=== PATIENT | male | born 1985 | race American Indian/Alaskan Native ===

== ENCOUNTER 2017-06-03 21:40 | Emergency (ER) | payer OTHER ==
--- NOTE | 2017-06-03 23:09 | XRay Report ---
FINAL REPORT EXAM: XR SHOULDER 2+V RT HISTORY: pain TECHNIQUE: 3 views of right shoulder. PRIORS: None. FINDINGS: No apparent fracture or dislocation. Joint spaces maintained. Soft tissues grossly unremarkable. IMPRESSION: 1. No acute osseous abnormality.
--- NOTE | 2017-06-04 02:41 | Emergency Department Report ---
Upper Extremity - HPI Chief Complaint: Shoulder Injury Stated Complaint: SHOULDER INJURY Time Seen by Provider: 06/04/17 02:34 Upper Extremity: Right Shoulder Occurred When: Today Mechanism: Other Severity: severe Symptoms: Yes Pain with Movement, Yes Limited Range of Movement, Yes Numbness, No Deformity, No Weakness, No Swelling, No Bruising/Ecchymosis, No Laceration or Abrasion Other History: 32-year-old -[place]i male comes in today for reporting unable to elevate his right shoulder. Patient reports that this morning he had difficulty elevating the shoulder so he came in. Patient reports he has a pre- existing injury to his right shoulder since last June 2016. Patient reports that his right shoulder keeps coming out the socket. He reports this morning it came out the socket and is hands became numb and cold he was able to place it back into the socket. Patient reports that he is awaiting authorization for surgery to have his shoulder repaired. Patient reports that he has had tramadol in the past which he felt did not help at all. He was then evaluated by Jose Daniel waiting for his workman compensation to kick in so he can get surgery. She reports his pain is a 5 out of 10 at rest and with movement it is a 9 out of 10. Patient denies any past medical history he admits to having a penicillin allergy. He currently takes no medications. ED Review of Systems ROS: Stated complaint: SHOULDER INJURY Other details as noted in HPI Constitutional: denies: chills, fever Eyes: denies: eye pain, eye discharge, vision change ENT: denies: ear pain, throat pain Respiratory: denies: cough, shortness of breath, wheezing Cardiovascular: denies: chest pain, palpitations Endocrine: no symptoms reported Gastrointestinal: denies: abdominal pain, nausea, diarrhea Genitourinary: denies: urgency, dysuria Musculoskeletal: arthralgia (right shoulder) Skin: denies: rash, lesions Neurological: denies: headache, weakness, paresthesias Psychiatric: denies: anxiety, depression Hematological/Lymphatic: denies: easy bleeding, easy bruising ED Past Medical Hx - Past Medical History Previous Medical History?: No - Surgical History Past Surgical History?: No - Social History Smoking Status: Current Every Day Smoker Substance Use Type: None - Medications Home Medications: Home Medications Medication Instructions Recorded Confirmed Last Taken Type Ibuprofen [Motrin 800 MG tab] 800 mg PO Q8H 10 Days #30 tablet 06/04/17 Unknown Rx Upper Extremity Exam - Exam General: Vital signs noted. No distress. Alert and acting appropriately. Shoulder Exam: Yes Shoulder Tenderness (rt anterior and posterior before meals joint), Yes AC Joint Tenderness, No Clavicle Tenderness, No Normal Range of Motion in Shoulder (2 painful to move able to elevate to chest.), No Shoulder Deformity Arm Exam: No Arm/Humerus Tenderness, No Arm Deformity Elbow: No Elbow Tenderness, No Normal Range of Motion in Elbow, No Elbow Deformity Forearm: No Forearm Tenderness, No Forearm Deformity, No Pain with Pronation, No Pain with Supination Wrist: No Wrist Tenderness, No Normal ROM in Wrist, No Wrist Deformity, No Snuffbox Tenderness, No Pain with Axial Thumb Compression Hand: No Hand Tenderness, No Hand Deformity, No Digit Tenderness, No Normal ROM in Digit(s), No Digit(s) Deformity CMS Exam: No Broken Skin, No Normal Distal Pulses, No Normal Capillary Refill, No Normal Distal Sensation ED Course Vital Signs 06/03/17 22:18 Temperature 98.2 F Pulse Rate 62 Respiratory 14 Rate Blood Pressure 119/78 O2 Sat by Pulse 100 Oximetry ED Medical Decision Making - Radiology Data Radiology results: report reviewed, image reviewed FINDINGS: No apparent fracture or dislocation. Joint spaces maintained. Soft tissues grossly unremarkable. IMPRESSION: 1. No acute osseous abnormality. - Medical Decision Making Patient has been evaluated by this provider fast track. I discussed with patient since this is a chronic condition that would place him ibuprofen and have her follow up with an orthopedist. Discussed the patient that his x-rays were within normal limits. Patient verbalized understanding Critical care attestation.: If time is entered above; I have spent that time in minutes in the direct care of this critically ill patient, excluding procedure time. ED Disposition Clinical Impression: Chronic right shoulder pain Right shoulder injury Qualifiers: Encounter type: initial encounter Qualified Code(s): S49.91XA - Unspecified injury of right shoulder and upper arm, initial encounter Disposition: TO HOME OR SELFCARE Is pt being admited?: No Does the pt Need Aspirin: No Condition: Stable Instructions: Arthralgia (ED) Additional Instructions: Please take pain medication as prescribed. Please follow-up with the orthopedist for further evaluation. Prescriptions: Ibuprofen [Motrin 800 MG tab] 800 mg PO Q8H 10 Days #30 tablet Referrals: THEA HOLM MD [Primary Care Provider] - 3-5 Days Forms: Work/School Release Form(ED), Accompanied Note
[2017-06-04] MEDS ORDERED: MOTRIN PO ONE (02:59)
[2017-06-04 03:28] VITALS: BP 118/74
== END 2017-06-04 03:29 | disposition home or self-care (01) ==
LOC: ED 21:40
DX: S49.91XA Unspecified injury of right shoulder and upper arm, initial encounter (principal); F17.200 Nicotine dependence, unspecified, uncomplicated; X58.XXXA Exposure to other specified factors, initial encounter; Y93.89 Activity, other specified; Y92.89 Other specified places as the place of occurrence of the external cause; Y99.8 Other external cause status
CPT/HCPCS: 99283

== ENCOUNTER 2018-02-23 05:57 | Day surgery (SDC) | payer SELFPAY ==
[~2018-02-23 05:57] MED LIST: ADRENALIN IV ONE; MARCAINE-EPI 0.25%-1:200,000 INFILTRATI ONE; NACL 0.9% IR ONE
[2018-02-23] MEDS ORDERED: NACL BACTERIOSTATIC INFILTRATI ONE (06:41)
[2018-02-23] MEDS ORDERED: ADRENALIN ONE (07:04)
[2018-02-23] MEDS ORDERED: MARCAINE-EPI 0.25%-1:200,000 INFILTRATI ONE (07:05)
[2018-02-23] MEDS ORDERED: ADRENALIN IV ONE (07:05)
[2018-02-23] MEDS ORDERED: DECADRON IV NR (07:17)
[2018-02-23] MEDS ORDERED: MARCAINE-EPI 0.5%-1:200,000 INFILTRATI NR (07:17)
--- NOTE | 2018-02-23 07:20 | Anesthesia Consultation ---
Anesthesia Consult and Med Hx Date of service: 02/23/18 - Airway Anesthetic Teeth Evaluation: Good ROM Head & Neck: Adequate Mental/Hyoid Distance: Adequate Mallampati Class: Class II Intubation Access Assessment: Good - Pulmonary Exam CTA: Yes - Cardiac Exam Cardiac Exam: No Murmur - Pre-Operative Health Status ASA Pre-Surgery Classification: ASA2 Proposed Anesthetic Plan: General Nerve Block: IS - Pulmonary Hx Smoking: Yes (3 PER DAY X 2 YRS) Hx Sleep Apnea: No (ROSALIE PRE SCREEN LOW RISK.) - Cardiovascular System Hx Hypertension: No - Central Nervous System Hx Back Pain: Yes (BACK AND NECK PAIN) - Other Systems Hx Substance Use: Yes (MARIJUANA 2-3 X PER WEEK) Hx Cancer: No
--- NOTE | 2018-02-23 07:20 | Anesthesia Day of Surgery ---
Anesthesia Day of Surgery - Day of Surgery Patient Examined: Yes Patient H&P Reviewed: Yes Patient is NPO: Yes
[2018-02-23] MEDS ORDERED: VANCOMYCIN/NS 1 GM/250 ML 1 GM/250 ML BAG IV NR (07:32)
[2018-02-23] MEDS ORDERED: MARCAINE-EPI 0.5%-1:200,000 INFILTRATI ONE (07:33)
[2018-02-23] MEDS ORDERED: DECADRON ONE (07:33)
[2018-02-23] MEDS ORDERED: SUBLIMAZE ONE (07:35)
[2018-02-23] MEDS ORDERED: DIPRIVAN 10 MG/ML IV ONE (07:35)
[2018-02-23] MEDS ORDERED: XYLOCAINE MPF 2% ONE (07:36)
[2018-02-23] MEDS ORDERED: QUELICIN ONE (07:36)
[2018-02-23] MEDS ORDERED: ZEMURON IV ONE (07:36)
[2018-02-23] MEDS ORDERED: VERSED IV NR (08:00)
[2018-02-23] MEDS ORDERED: LACTATED RINGERS 1,000 ML IV SCH (08:00)
[2018-02-23] MEDS ORDERED: NEURONTIN PO NR (08:00)
[2018-02-23] MEDS ORDERED: PEPCID IV NR (08:00)
[2018-02-23] MEDS ORDERED: NEO SYNEPHRINE/NS Syringe(OR USE) IV ONE (08:53)
[2018-02-23] MEDS ORDERED: ROBINUL ONE (09:44)
[2018-02-23] MEDS ORDERED: ZOFRAN ONE (09:50)
[2018-02-23] MEDS ORDERED: NEO SYNEPHRINE ONE (09:50)
[2018-02-23] MEDS ORDERED: DEMEROL IV PRN (10:12)
[2018-02-23] MEDS ORDERED: DILAUDID IV PRN (10:12)
[2018-02-23] MEDS ORDERED: ZOFRAN IV PRN (10:12)
[2018-02-23] MEDS ORDERED: TORADOL IV PRN (10:12)
--- NOTE | 2018-02-23 11:39 | Procedure Note ---
Date of procedure: 02/23/18 Pre-op diagnosis: recurrent right anterior shoulder dislocation Post-op diagnosis: same Procedure: Arthroscopy right shoulder with repair of torn anterior labrum using suture anchors Procedure The patient was brought to the OR on the recovery room bed patient was then placed supine on the OR table next she was given general anesthesia followed by placement in the left lateral decubitus position. The right upper extremity was prepped and draped in the usual sterile manner. A timeout procedure was done to identify the patient and the correct operative site. The patient's right upper extremity was then placed and the [facility] shoulder positioner. Routine arthroscopic portals were made a stab wound was placed in the posterior portal this was followed by introduction of the arthroscope the shoulder joint was then insufflated with normal saline solution following this R Bob examination of the right shoulder revealed the patient to have a intact biceps tendon did not appear to be any tears in the rotator cuff tendon in the anterior -inferior quadrant of the glenoid fossa the patient was noted to have a large Bankart lesion with some thinning noted in the labral tissue following this the arthroscope was positioned more anteriorly in the shoulder joint this was followed by placing a switching stick and bring in the office cannula more anterior stab wounds were placed over this area followed by placement of a secondary arthroscopic portal again and the arthroscope was inserted patient was noted to have the Bankart lesion with complete detachment in the 2 to 6 o' clock position Arthroscopic shaver was brought in the patient's of the labrum and glenoid was debrided care was taken to create a nice bleeding bed for our labral repair following this 3 sutures were placed in the detached labral tissue one at the 2 o'clock position and another at 4 o'clock the 5 o'clock positions . These sutures were then secured to the glenoid using sterile suture anchors. The tension or traction on the right upper extremity was reduced and the arm or shoulder was taken through a range of motion and did appear that the anterior subluxation noted was reduced at the conclusion of this case. Next the arthroscopic instruments were removed via stab wounds were repaired routine. Dressings were applied the patient tolerated the procedure there were no complications. He was taken to the PACU in a stable condition Anesthesia: LONG Surgeon: NKECHI ALY Instructor Pilot: THEA SHAH Estimated blood loss: minimal Pathology: none Condition: stable Disposition: PACU
[2018-02-23 13:02] VITALS: BP 131/96
== END 2018-02-23 13:06 | disposition home or self-care (01) ==
LOC: OR 05:57
PROVIDERS: ATTEND Orthopaedic Surgery
DX: S43.084A Other dislocation of right shoulder joint, initial encounter (principal); S43.491A Other sprain of right shoulder joint, initial encounter; F32.9 Major depressive disorder, single episode, unspecified; F17.200 Nicotine dependence, unspecified, uncomplicated; Z79.899 Other long term (current) drug therapy; Z88.0 Allergy status to penicillin; Z91.018 Allergy to other foods; Z98.890 Other specified postprocedural states; X58.XXXA Exposure to other specified factors, initial encounter; Y93.89 Activity, other specified; Y92.89 Other specified places as the place of occurrence of the external cause; Y99.8 Other external cause status
CPT/HCPCS: 29806; A4217; C1713; J0171; J1100; J2250; J2370; J2405; J2704; J3010; J3370; J7120; L1830; J0330

== ENCOUNTER 2018-06-12 19:30 | Emergency (ER) | payer SELFPAY ==
[2018-06-12 20:08] VITALS: BP 128/86
[2018-06-12 20:50] LABS: Bilirubin,Urine NEG (Negative); Blood,Urine NEG (Negative); Color,Urine Yellow (Yellow); Mucus,Urine FEW /HPF; Protein,Urine <15 mg/dL mg/dL (Negative); Urobilinogen,Urine < 2.0 mg/dL (<2.0)
== END 2018-06-12 23:35 | disposition left against medical advice (07) ==
LOC: ED 19:30
DX: R52 Pain, unspecified (principal); Z53.21 Procedure and treatment not carried out due to patient leaving prior to being seen by health care provider
CPT/HCPCS: 81001

== ENCOUNTER 2018-06-13 12:20 | Emergency (ER) | payer OTHER, SELFPAY ==
--- NOTE | 2018-06-13 13:16 | Emergency Department Report ---
Blank Doc - Documentation Documentation: 33 yo male retuerns to Ed from yesterday cc of Left upper abd pain states movt and laying down worsens pain EXAM: mild tender at LUq, no mass PLAN CT abdomen MSE complete
[2018-06-13 15:26] LABS: Bilirubin,Urine NEG (Negative); Blood,Urine SM (Negative); Color,Urine Yellow (Yellow); Mucus,Urine FEW /HPF; Protein,Urine <15 mg/dL mg/dL (Negative); Urobilinogen,Urine < 2.0 mg/dL (<2.0)
[2018-06-13 15:32] LABS: BUN/Creatinine Ratio 17; Blood Urea Nitrogen 15 mg/dL (9-20); Calcium 9.7 mg/dL (8.4-10.2); Hemolysis Index 12
[2018-06-13 15:35] LABS: Hematocrit 42.8 % (35.5-45.6); Mean Corpuscular HGB Conc 33 % (32-34); Mean Corpuscular Volume 88 fl (84-94); Platelet Count 341 K/mm3 (140-440); Red Blood Count 4.88 M/mm3 (3.65-5.03); Red Cell Distribution Width 13.6 % (13.2-15.2)
[2018-06-13 15:36] LABS: Eosinophils # (Auto) 0.5 K/mm3 (0.0-0.4); Eosinophils % (Auto) 4.9 % (0.0-4.3); Lymphocytes # (Auto) 2.2 K/mm3 (1.2-5.4); Lymphocytes % (Auto) 22.9 % (13.4-35.0); Monocytes % (Auto) 10.9 % (0.0-7.3)
[2018-06-13 15:37] LABS: Basophils # (Auto) 0.1 K/mm3 (0.0-0.1)
--- NOTE | 2018-06-13 17:23 | Emergency Department Report ---
ED Abdominal Pain HPI - General Chief Complaint: Abdominal Pain Stated Complaint: LT SIDE PAIN Time Seen by Provider: 06/13/18 15:36 Source: patient Mode of arrival: Ambulatory Limitations: No Limitations - History of Present Illness Initial Comments: This is a 33-year-old male who presents with left upper quadrant pain for one week. Patient reports pain is sharp with deep breaths or cough. He reports pain is the left upper abdomen area radiating to left ribs. Patient states he was here yesterday but left prior to treatment. Patient denies recent injury. She denies fever, frequency, urgency, dysuria, chest pain, shortness of breath, nausea or vomiting, or diarrhea. MD Complaint: abdominal pain Onset/Timin -: week(s) Location: LUQ Radiation: none Migration to: no migration Severity: moderate Severity scale (0 -10): 7 Quality: sharp Consistency: intermittent Improves With: nothing Worsens With: movement, other (deep breaths) Associated Symptoms: denies other symptoms - Related Data Previous Rx's Medication Instructions Recorded Last Taken Type HYDROcodone/APAP 7.5-325 [Collins 1 each PO Q6HR PRN #30 tablet 02/23/18 Unknown Rx 7.5-325 mg TAB] oxyCODONE [Roxicodone TAB] 5 mg PO Q6HR PRN #30 tablet 02/23/18 Unknown Rx traMADol [Ultram 50 MG tab] 50 mg PO Q6HR PRN #12 tablet 06/13/18 Unknown Rx Allergies Allergy/AdvReac Type Severity Reaction Status Date / Time Penicillins Allergy Hives Verified 06/13/18 13:11 pineapple Allergy Shortness Verified 06/13/18 13:11 of Breath , SWELLING ED Review of Systems ROS: Stated complaint: LT SIDE PAIN Other details as noted in HPI Constitutional: denies: chills, fever Respiratory: denies: cough, shortness of breath, wheezing Cardiovascular: denies: chest pain, palpitations Gastrointestinal: abdominal pain. denies: nausea, diarrhea Genitourinary: denies: urgency, dysuria Musculoskeletal: denies: back pain, joint swelling, arthralgia Neurological: denies: headache, weakness, paresthesias Psychiatric: denies: anxiety, depression ED Past Medical Hx - Past Medical History Previous Medical History?: No Hx Hypertension: No Hx HIV: No - Surgical History Past Surgical History?: Yes Additional Surgical History: right shoulder - Social History Smoking Status: Current Every Day Smoker Substance Use Type: None - Medications Home Medications: Home Medications Medication Instructions Recorded Confirmed Last Taken Type HYDROcodone/APAP 7.5-325 [Collins 1 each PO Q6HR PRN #30 tablet 02/23/18 Unknown Rx 7.5-325 mg TAB] oxyCODONE [Roxicodone TAB] 5 mg PO Q6HR PRN #30 tablet 02/23/18 Unknown Rx traMADol [Ultram 50 MG tab] 50 mg PO Q6HR PRN #12 tablet 06/13/18 Unknown Rx ED Physical Exam - General Limitations: No Limitations General appearance: alert, in no apparent distress - Respiratory Respiratory exam: Present: normal lung sounds bilaterally. Absent: respiratory distress - Cardiovascular Cardiovascular Exam: Present: regular rate, normal rhythm. Absent: systolic murmur, diastolic murmur, rubs, gallop - GI/Abdominal GI/Abdominal exam: Present: soft, tenderness (left upper quadrant ), normal bowel sounds. Absent: distended, guarding, rebound, rigid, organomegaly, mass, bruit, pulsatile mass - Back Exam Back exam: Absent: CVA tenderness (R), CVA tenderness (L) - Neurological Exam Neurological exam: Present: alert, oriented X3 - Psychiatric Psychiatric exam: Present: normal affect, normal mood - Skin Skin exam: Present: warm, dry, intact, normal color. Absent: rash ED Course Vital Signs 06/13/18 06/13/18 06/13/18 13:12 18:19 18:27 Temperature 98.1 F 98.8 F Pulse Rate 81 65 Respiratory 20 15 15 Rate Blood Pressure 117/77 114/72 O2 Sat by Pulse 97 99 Oximetry ED Medical Decision Making - Lab Data Result diagrams: 06/13/18 14:52 06/13/18 14:52 Lab Results 06/13/18 06/13/18 06/13/18 Range/Units 14:52 14:52 14:52 WBC 9.5 (4.5-11.0) K/mm3 RBC 4.88 (3.65-5.03) M/mm3 Hgb 14.0 (11.8-15.2) gm/dl Hct 42.8 (35.5-45.6) % MCV 88 (84-94) fl MCH 29 (28-32) pg MCHC 33 (32-34) % RDW 13.6 (13.2-15.2) % Plt Count 341 (140-440) K/mm3 Lymph % (Auto) 22.9 (13.4-35.0) % [place] % (Auto) 10.9 H (0.0-7.3) % Eos % (Auto) 4.9 H (0.0-4.3) % Baso % (Auto) 1.0 (0.0-1.8) % Lymph # 2.2 (1.2-5.4) K/mm3 [place] # 1.0 H (0.0-0.8) K/mm3 Eos # 0.5 H (0.0-0.4) K/mm3 Baso # 0.1 (0.0-0.1) K/mm3 Seg Neutrophils % 60.3 (40.0-70.0) % Seg Neutrophils # 5.7 (1.8-7.7) K/mm3 Sodium 139 (137-145) mmol/L Potassium 4.1 (3.6-5.0) mmol/L Chloride 102.1 (98-107) mmol/L Carbon Dioxide 29 (22-30) mmol/L Anion Gap 12 mmol/L BUN 15 (9-20) mg/dL Creatinine 0.9 (0.8-1.5) mg/dL Estimated GFR > 60 ml/min BUN/Creatinine Ratio 17 % Glucose 67 L (75-100) mg/dL Calcium 9.7 (8.4-10.2) mg/dL Amylase 90 (27-131) units/L Lipase 166 H (13-60) units/L Urine Color (Yellow) Urine Turbidity (Clear) Urine pH (5.0-7.0) Ur Specific [place] (1.003-1.030) Urine Protein (Negative) mg/dL Urine Glucose (UA) (Negative) mg/dL Urine Ketones (Negative) mg/dL Urine Blood (Negative) Urine Nitrite (Negative) Urine Bilirubin (Negative) Urine Urobilinogen (<2.0) mg/dL Ur Leukocyte Esterase (Negative) Urine WBC (Auto) (0.0-6.0) /HPF Urine RBC (Auto) (0.0-6.0) /HPF Urine Mucus /HPF 02/05/19 Range/Units 15:04 WBC (4.5-11.0) K/mm3 RBC (3.65-5.03) M/mm3 Hgb (11.8-15.2) gm/dl Hct (35.5-45.6) % MCV (84-94) fl MCH (28-32) pg MCHC (32-34) % RDW (13.2-15.2) % Plt Count (140-440) K/mm3 Lymph % (Auto) (13.4-35.0) % [place] % (Auto) (0.0-7.3) % Eos % (Auto) (0.0-4.3) % Baso % (Auto) (0.0-1.8) % Lymph # (1.2-5.4) K/mm3 [place] # (0.0-0.8) K/mm3 Eos # (0.0-0.4) K/mm3 Baso # (0.0-0.1) K/mm3 Seg Neutrophils % (40.0-70.0) % Seg Neutrophils # (1.8-7.7) K/mm3 Sodium (137-145) mmol/L Potassium (3.6-5.0) mmol/L Chloride (98-107) mmol/L Carbon Dioxide (22-30) mmol/L Anion Gap mmol/L BUN (9-20) mg/dL Creatinine (0.8-1.5) mg/dL Estimated GFR ml/min BUN/Creatinine Ratio % Glucose (75-100) mg/dL Calcium (8.4-10.2) mg/dL Amylase (27-131) units/L Lipase (13-60) units/L Urine Color Yellow (Yellow) Urine Turbidity Clear (Clear) Urine pH 5.0 (5.0-7.0) Ur Specific [place] 1.018 (1.003-1.030) Urine Protein <15 mg/dl (Negative) mg/dL Urine Glucose (UA) Neg (Negative) mg/dL Urine Ketones Neg (Negative) mg/dL Urine Blood Sm (Negative) Urine Nitrite Neg (Negative) Urine Bilirubin Neg (Negative) Urine Urobilinogen < 2.0 (<2.0) mg/dL Ur Leukocyte Esterase Neg (Negative) Urine WBC (Auto) 1.0 (0.0-6.0) /HPF Urine RBC (Auto) 3.0 (0.0-6.0) /HPF Urine Mucus Few /HPF - Radiology Data Radiology results: report reviewed FINAL REPORT EXAM: CT ABDOMEN PELVIS WO CON HISTORY: LUQ tenderness TECHNIQUE: CT examination of the ABDOMEN without IV contrast CT examination of the PELVIS without IV contrast PRIORS: None. FINDINGS: Clear lung bases. No acute fracture. Normal noncontrast appearance of the liver, gallbladder, adrenals, pancreas, and spleen. Normal caliber abdominal aorta and IVC. 1 mm nonobstructing left renal calculus. Otherwise normal-appearing kidneys without hydronephrosis. Normal proximal ureters. Distal ureters obscured by adjacent anatomy. Intact abdominal wall without evidence hernia. No retroperitoneal adenopathy. No evidence of mesenteric mass. Normal-appearing stomach and duodenum. No small bowel distention in the abdomen and pelvis. No pelvic free fluid. Normal-appearing urinary bladder, prostate, seminal vesicles, and rectum. No definite sigmoid colon abnormality. No gross ascites, free air, or colonic distention. Slight diverticulosis cecum and ascending colon without evidence of diverticulitis. Normal- appearing terminal ileum and appendix. IMPRESSION: 1 mm nonobstructing calculus in left renal lower pole. No evidence of ureteral calculus or hydronephrosis. Slight diverticulosis cecum and ascending colon without evidence of acute inflammation - Medical Decision Making Patient is stable and was examined by this provider if x-ray. Vitals stable. Obtained CMP, CBC, lipase, UA, and CT of abdomen. Lipase elevated, all other labs unremarkable. Given tramadol 50 mg by mouth once: ER 1 mm nonobstructing calculus in left renal lower pole. No evidence of ureteral calculus or hydronephrosis. Slight diverticulosis cecum and ascending colon without evidence of acute inflammation. Renal calculi Start tramadol for pain. Given strainer to strain urine. Instructed to increase water intake. Referral to urology. Discussed plan with patient and agreed to plan. Discharged home in stable condition. Follow up with PCP in 2-3 days. Critical care attestation.: If time is entered above; I have spent that time in minutes in the direct care of this critically ill patient, excluding procedure time. ED Disposition Clinical Impression: Right flank pain, Renal colic on left side, Nephrolithiasis Disposition: TO HOME OR SELFCARE Is pt being admited?: No Does the pt Need Aspirin: No Condition: Stable Instructions: Kidney Stones (ED), Renal Colic (ED) Additional Instructions: Increase fluid intake to 2 L per day. Change diet to low-protein and a low-sodium diet to prevent reoccurrence. Strain urine to observe for passing stones. Follow-up with primary care doctor in 2-3 days. Follow-up with urology in 1-2 weeks for management of kidney stones. Prescriptions: traMADol [Ultram 50 MG tab] 50 mg PO Q6HR PRN #12 tablet PRN Reason: Pain Referrals: LUIS ORTIZ MD [Primary Care Provider] - 3-5 Days [facility] [Provider Group] - 3-5 Days [facility] [Outside] - 3-5 Days Forms: Work/School Release Form(ED) Time of Disposition: 19:01
[2018-06-13 18:28] VITALS: BP 114/72
--- NOTE | 2018-06-13 18:41 | Cat Scan Report ---
FINAL REPORT EXAM: CT ABDOMEN PELVIS WO CON HISTORY: LUQ tenderness TECHNIQUE: CT examination of the ABDOMEN without IV contrast CT examination of the PELVIS without IV contrast PRIORS: None. FINDINGS: Clear lung bases. No acute fracture. Normal noncontrast appearance of the liver, gallbladder, adrenal s, pancreas, and spleen. Normal caliber abdominal aorta and IVC. 1 mm nonobstructing left renal calculus. Otherwise normal-appearing kidneys without hydronephrosis. N ormal proximal ureters. Distal ureters obscured by adjacent anatomy. Intact abdominal wall without evidence hernia. No retroperitoneal adenopathy. No evidence of mesenter ic mass. Normal-appearing stomach and duodenum. No small bowel distention in the abdomen and pelvis. No pelvic free fluid. Normal-appearing urinary bladder, prostate, seminal vesicles, and rectum. No de finite sigmoid colon abnormality. No gross ascites, free air, or colonic distention. Slight diverticulosis cecum and ascending colon without evidence of diverticulitis. Normal-appearing terminal ileum and appendix. IMPRESSION: 1 mm nonobstructing calculus in left renal lower pole. No evidence of ureteral calculus or hydronephr osis. Slight diverticulosis cecum and ascending colon without evidence of acute inflammation
[2018-06-13] MEDS ORDERED: ULTRAM PO ONE (18:57)
== END 2018-06-13 19:20 | disposition home or self-care (01) ==
LOC: ED 12:20
DX: N20.0 Calculus of kidney (principal); Z91.018 Allergy to other foods; Z88.0 Allergy status to penicillin; F17.200 Nicotine dependence, unspecified, uncomplicated
CPT/HCPCS: 36415; 74176; 80048; 81001; 82150; 83690; 85025; 99283

== ENCOUNTER 2018-12-31 22:58 | Emergency (ER) | payer OTHER, SELFPAY ==
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
[2019-01-01 02:49] VITALS: BP 126/92
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
== END 2019-01-01 04:25 | disposition home or self-care (01) ==
LOC: ED 22:58
DX: S80.02XA Contusion of left knee, initial encounter (principal); S60.222A Contusion of left hand, initial encounter; S00.83XA Contusion of other part of head, initial encounter; M62.838 Other muscle spasm; M54.5 Low back pain; Z98.890 Other specified postprocedural states; F17.200 Nicotine dependence, unspecified, uncomplicated; Z79.899 Other long term (current) drug therapy; Z88.0 Allergy status to penicillin; Z91.018 Allergy to other foods; V89.2XXA Person injured in unspecified motor-vehicle accident, traffic, initial encounter; Y93.89 Activity, other specified; Y92.488 Other paved roadways as the place of occurrence of the external cause; Y99.8 Other external cause status
CPT/HCPCS: 72100; 99283

== ENCOUNTER 2020-05-13 17:33 | Emergency (ER) | payer SELFPAY ==
[2020-05-13 18:08] VITALS: BP 139/76
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
== END 2020-05-13 20:48 | disposition home or self-care (01) ==
LOC: ED 17:33
DX: S16.1XXA Strain of muscle, fascia and tendon at neck level, initial encounter (principal); S43.491A Other sprain of right shoulder joint, initial encounter; S39.012A Strain of muscle, fascia and tendon of lower back, initial encounter; F17.200 Nicotine dependence, unspecified, uncomplicated; F12.90 Cannabis use, unspecified, uncomplicated; Z79.899 Other long term (current) drug therapy; Z88.0 Allergy status to penicillin; Z91.018 Allergy to other foods; Z98.890 Other specified postprocedural states; V49.49XA Driver injured in collision with other motor vehicles in traffic accident, initial encounter; Y92.410 Unspecified street and highway as the place of occurrence of the external cause; Y93.89 Activity, other specified; Y99.8 Other external cause status
CPT/HCPCS: 99281